=== PATIENT | female | born 1955 | race Caucasian/White ===

== ENCOUNTER → 2020-01-05 | Outpatient (CLI) | payer OTHER ==
[~2020-01-05] VITALS: Ht 157.5 cm; Wt 52.2 kg
[~2020-01-05] MED LIST: ASPIRIN EC81 M1 PO; CHANTIX1 MG PO; CLOPIDOGREL PO; ESCITALOPRA5 MG/5 ML PO; HYDROCHLOROTHIA25 M1 PO; KLOR-CON 1010 MEQ PO; LEVO-T25 MCG PO; LEXAPRO 10 MG T10 MG PO; TOPROL XL200 MG PO; VYTORIN 10-201 EACH PO; ZESTRIL10 MG PO
--- NOTE | ~2020-01-05 | H ---
[facility] [address] HISTORY AND PHYSICAL Name: DHEERAJ TEJADA Room #: REG CHAD Singh.#: [id number] Admission: 01/05/20 Attend Phys: Moncho Skelton MD, Discharge: Date of : 51 Report #: [id number] THIS REPORT FOR: cc: Jovanny Jones,Jovanny Yanez DO ~ CC: Moncho Burton DATE OF SERVICE: 01/05/2020 HISTORY OF PRESENT ILLNESS: The patient is a 64-year-old female patient of Dr. Jones, who was sent to me for further evaluation regarding a significant anterior wall ischemia on a recent nuclear test. Some subtle symptomatology of angina, some mild dyspnea and slight decrease in exercise tolerance. She has had prior circumflex stents remotely. Has also had bilateral iliac kissing stents 10 years ago or so. Seems to also have some stable claudication with some buttock discomfort, left greater than right. She does not walk long and underlying COPD and long time tobacco use 40+ years, now down to half a pack a day. She is independent. She is retired. No syncope or presyncope. CURRENT MEDICATIONS: Plavix 75, Lexapro, Zetia, hydrochlorothiazide, potassium 20, levothyroxine, lisinopril 20. PAST MEDICAL HISTORY: Positive for a limited infarct with ejection fraction 50%, prior coronary stent, peripheral vascular disease with prior iliac stents, hypertension, hypercholesterolemia, COPD, hysterectomy. SOCIAL HISTORY: She is . No alcohol, half a pack a day currently, 40-50 pack year history. She is retired. Some caffeine use. FAMILY HISTORY: Positive for father had premature coronary artery disease. REVIEW OF SYSTEMS: Essentially negative except for stated above and decreased exercise tolerance. PHYSICAL EXAMINATION: GENERAL: She is pleasant, alert, in no distress. VITAL SIGNS: Blood pressure was 110/54, pulse is 60s and regular. HEENT: Eyes reveal xanthelasmas. Pharynx is clear. NECK: Shows preserved upstrokes without JVD or bruits. LUNGS: Clear with prolonged expiratory phase. CARDIOVASCULAR: Regular rate and rhythm, S1, S2 distant. ABDOMEN: Soft. EXTREMITIES: Reveal diminished pulses bilaterally. There are diminished [facility] [address] [place] [address] HISTORY AND PHYSICAL Name: DHEERAJ TEJADA Room #: REG CHAD SinghPepper#: [id number] Admission: 01/05/20 Attend Phys: Moncho Skelton MD, Discharge: Date of : 51 Report #: [id number] femoral pulses. SKIN: Warm and dry without xanthoma or ulcer. NEUROLOGIC: Intact. MUSCULOSKELETAL: Generalized arthritic changes. ASSESSMENT: 1. Coronary artery disease with prior circumflex stent and an abnormal nuclear test suggesting anterior wall ischemia. 2. Mild ischemic cardiomyopathy. 3. Chronic obstructive pulmonary disease with continued tobacco use. 4. Hypertension. 5. Hypercholesterolemia. 6. Degenerative joint disease. 7. Peripheral vascular disease with prior iliac stents. RECOMMENDATIONS AND PLAN: Risks, benefits, alternatives were discussed. We will proceed to the catheterization lab to delineate the anatomy. Laboratory work looks to be within normal limits here. No creatinine issues. No kidney issues and we will also have Dr. Cameron performed runoff based on her claudication history and prior iliac stents. Thank you for asking me to assist in the care of this patient. By: 0901 0940 /nt
[2020-01-05 07:36] VITALS: BP 116/65
[2020-01-05 07:44] LABS: HEMATOCRIT 40.8 % (37.0-47.0); HEMOGLOBIN 13.7 gm/dL (12.0-15.0); MCH 32.3 pg (26.0-34.0); MCHC 33.5 g/dL (28.0-37.0); MCV 96.4 fL (80.0-100.0); RBC 4.23 mil/uL (4.20-5.00)
[2020-01-05 07:48] LABS: CALCIUM 9.3 mg/dL (8.5-10.1); CREATININE 1.2 mg/dL (0.6-1.0); POTASSIUM 3.5 mmol/L (3.5-5.1)
--- NOTE | 2020-01-05 09:53 | EKG ---
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 : 1955 Requested By: Moncho Skelton Order Number: [id number] MD: Antony Mccain Measurements Intervals [place] Rate: 63 P: -27 MO: 117 QRS: 52 QRSD: 77 T: 76 QT: 409 QTc: 419 Interpretive Statements Sinus rhythm Borderline short MO interval Possible anteroseptal infarct, age indeterminate Minimal, diffuse ST segment elevation No previous ECG available for comparison Electronically Signed On 01-05-2020 9:51:57 CDT by Antony Mccain [email or web address] <ELECTRONICALLY SIGNED> By: Antony Mccain MD, [facility] 01/05/20 0951 0745 0745 Antony Mccain MD, [facility] /EPI
--- NOTE | 2020-01-05 14:05 | CATHLAB ---
[facility] [place] [address] INVASIVE PROCEDURE REPORT Name: DHEERAJ TEJADA Room #: REG CHAD Singh.#: [id number] Admission: 01/05/20 Attend Phys: Moncho Skelton MD, Discharge: Date of : 51 Report #: [id number] THIS REPORT FOR: cc: Jovanny Jones Jeffrey W. DO Mancuso, Gerald M. MD [facility] ~ APPROVED REPORT Study performed: 01/05/2020 07:59:45 Patient Details Patient Status: Out-Patient Room #: The patient is a 64 year-old female Event Personnel Moncho Skelton Crystal Syrup Maker, Jose Angulo RN, Neo Calixto RTR ScrManjinder molina Nancy RTR, WAITER/WAITRESS [employer] Monitor Procedures Performed Art Access - R femoral artery* Left Heart Cath w/or w/o Coronaries [id number] [facility] [address]51 Initial Mod Sed Same Phys/QHP Gr5y 496173 43488 Mod Sed Same Phys/QHP Ea 240322 Aortogram Abdominal Peripheral Angio 072578 Hemostasis with Manual pressure Indication Positive stress test Procedure Narrative The Right Groin^ was infiltrated with 1% Lidocaine subcutaneous anesthesia. A PINNACLE 6FR Sheath #[id number] sheath was inserted into the RFA^. Coronary angiography was performed using coronary diagnostic catheters. The right coronary system was accessed and visualized with a JR4 catheter. The left coronary system was accessed and visualized with a JL4 catheter. The left ventricle was accessed and visualized with a Pigtail catheter. Left ventriculogram was performed in 30 degree projection. An aortogram of the abdominal aorta was performed. Hemostasis was obtained with manual pressure following sheath removal without any complications. The patient tolerated the procedure well and there were no complications associated with the procedure. There was no hematoma. Intraoperative Conscious Sedation Sedation start time: 08:30 Case end Time: 09:39 [facility] [place] [address] INVASIVE PROCEDURE REPORT Name: DHEERAJ TEJADA Room #: REG Lillie#: [id number] Admission: 01/05/20 Attend Phys: Moncho Skelton, Discharge: Date of : 51 Report #: [id number] Fentanyl 50 mcg Versed 2 mg Conscious sedation is a total from left heart cath and lower extremity runoff. Fluoro time and dose are a total from left heart cath and lower extremity runoff. Contrast amount is a total from left heart cath and lower extremity runoff. Fluoro Time: 5.52 minutes Dose: DAP 8711.30 cGycm2 459 mGy Contrast Type and Amount: Visipaque 208 ml Hemodynamics The aortic pressure is 128/55 mmHg with a mean of 78 mmHg. The left ventricular pressure is 143/4 mmHg with a mean of mmHg. The left ventricular end diastolic pressure is 21 mmHg. Conclusion #1. Normal left ventricular size and systolic function lower limits of normal EF 50 to 55% #2 the LAD proximally is patent giving rise to 2 diagonal branches and then the LAD occludes. #3 the circumflex OM previously placed proximal stent totally occluded vessel. Faint left to left collateralization of the OM #4 large dominant right coronary artery is providing collateral filling to the occluded LAD and the circumflex OM system. There is no occlusive disease in this large dominant vessel giving off a moderate-sized posterior lateral and a large PDA. Recommendations and plan: Continue aggressive risk factor modification. Peripheral angiography being performed by Dr. Cameron. 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 See Dr. Cameron's dictation. No indication for revascularization coronary paul at this time. She remains relatively asymptomatic. Nuclear stress testing showing anterior ischemia is consistent with this collaterally filled LAD. I suspect the circumflex OM was never a large system. It is also occluded and collaterally filled. <ELECTRONICALLY SIGNED> By: Moncho Skelton MD, FACC 01/05/20 1403 1403 140 Moncho Skelton MD, FACC /INF
== END | disposition home or self-care (01) ==
LOC: CATH 06:46
PROVIDERS: Internal Medicine Cardiovascular Disease
DX: R94.39 Abnormal result of other cardiovascular function study (principal); I25.10 Atherosclerotic heart disease of native coronary artery without angina pectoris; I73.9 Peripheral vascular disease, unspecified; I70.1 Atherosclerosis of renal artery; I10 Essential (primary) hypertension; E78.5 Hyperlipidemia, unspecified; I25.2 Old myocardial infarction; F17.210 Nicotine dependence, cigarettes, uncomplicated; Z98.890 Other specified postprocedural states; Z79.899 Other long term (current) drug therapy; Z90.710 Acquired absence of both cervix and uterus